=== PATIENT | male | born 1945 ===

== ENCOUNTER → 2022-05-21 | Day surgery (SDC) | payer OTHER ==
[~2022-05-21] VITALS: Ht 167.6 cm; Wt 77.1 kg
[~2022-05-21] MED LIST: AMLODIPINE BESYL5 MG PO; DERMOPLAST PAIN78 GM TOP; NEURONTIN300 MG PO; ULTRAM50 MG PO; ZOCOR40 MG PO
== END | disposition home or self-care (01) ==
LOC: ADM 05-19 09:00 → CIR.AMB 08:15
PROVIDERS: ATTEND Surgery
DX: D23.5 Other benign neoplasm of skin of trunk (principal); K64.4 Residual hemorrhoidal skin tags; Z20.822 Contact with and (suspected) exposure to COVID-19